=== PATIENT | male | born 1955 | race Caucasian/White ===

== ENCOUNTER 2017-12-13 21:56 | Inpatient (IN) | payer BC, OTHER ==
[~2017-12-13] VITALS: Ht 180.3 cm; Wt 96.2 kg
[~2017-12-13 21:56] MED LIST: ASPI-84 PO; ATEN50TA PO; CLOP75TA15 PO
--- NOTE | 2017-12-13 21:56 | NUR ---
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 1 NITRO AND 162 ASA GIVEN PRIOR TO ARRIVAL. PT IS HYPERTENSIVE BU OTHERWISEE VSS NO ACUTE DISTRESS AT THIS TIME. X1 VOMIT. WILL CONTINUE TO MONITOR FOR ANY CHANGES DURING THE SHIFT.
--- NOTE | 2017-12-13 21:57 | NUR ---
ER MD CASTANEDA AT BEDSIDE FOR EVAL
--- NOTE | 2017-12-13 22:11 | NUR ---
18G LEFT AC IV STARTED, BLOOD SAMPLE OBTAINED AND SENT TO LAB
[2017-12-13] MEDS ORDERED: ONDANSETRON HCL/PF 4 MG/2 ML VIAL ONE (22:13)
[2017-12-13] MEDS ORDERED: ASPIRIN 325 MG TABLET ONE (22:20)
[2017-12-13] MEDS ORDERED: NITROGLYCERIN 0.4 MG/TAB BOTTLE ONE (22:20)
[2017-12-13] MEDS ORDERED: NITROGLYCERIN 0.4 MG/TAB BOTTLE SL ONE (22:30)
[2017-12-13] MEDS ORDERED: ASPIRIN 325 MG TABLET PO ONE (22:30)
[2017-12-13] MEDS ORDERED: ONDANSETRON HCL/PF 4 MG/2 ML VIAL IV ONE (22:30)
[2017-12-13 22:32] LABS: BASOPHILS % (AUTO) 0.3 % (0.0-2.0); EOSINOPHILS % (AUTO) 0.1 % (0.0-6.0); HEMATOCRIT 51 % (39-51); HEMOGLOBIN 16.8 g/dL (13.5-17.5); LYMPHOCYTES # (AUTO) 1.2 /CMM (0.8-4.8); LYMPHOCYTES % (AUTO) 9.4 % (20.0-44.0); MEAN CORPUSCULAR HEMOGLOBIN 31 PG (26.0-33.0); MEAN CORPUSCULAR HGB CONC 33 g/dl (31.0-36.0); MEAN CORPUSCULAR VOLUME 93 fL (80-96); MONOCYTES # (AUTO) 0.4 /CMM (0.1-1.30); MONOCYTES % (AUTO) 3.3 % (2.0-12.0); NEUTROPHILS # (AUTO) 11.4 /CMM (1.8-8.9); NEUTROPHILS % (AUTO) 86.9 % (43.0-81.0); PLATELET COUNT (AUTO) 245 /CMM (150-450); RDW COEFFICIENT OF VARIATION 12.8 (11.5-15.0); RED BLOOD CELL COUNT(AUTO) 5.48 MIL/uL (4.5-6.0); WHITE BLOOD COUNT (AUTO) 13.1 K/uL (4.3-11.0)
--- NOTE | 2017-12-13 22:42 | NUR ---
PARACHUTE TAPER AT BEDSIDE
[2017-12-13 22:44] LABS: CALCIUM, SERUM 9.1 mg/dL (8.5-10.1); CARBON DIOXIDE 25 mmol/L (21-32); CHLORIDE 99 mmol/L (98-107); CREATININE 1.4 mg/dL (0.6-1.3); GLUCOSE 143 mg/dL (74-106); POTASSIUM 3.7 mmol/L (3.5-5.1); SODIUM SERUM 135 mmol/L (136-145); UREA NITROGEN, BLOOD 27 mg/dL (7-18)
--- NOTE | 2017-12-13 22:46 | NUR ---
CALLED NURSING [facility] AND REQUESTED A TELE BED FOR THIS PT.
[2017-12-13 22:49] LABS: INR 0.96 (0.87-1.13)
[2017-12-13 22:52] LABS: TROPONIN I < 0.017 ng/mL (0.00-0.056)
[2017-12-13 22:57] LABS: B-TYPE NATRIURETIC PEPTIDE 103 PG/ML (0-125)
[2017-12-13] MEDS ORDERED: ATOR20TA PO (23:20)
--- NOTE | 2017-12-13 23:35 | NUR ---
PT IS ASSIGNED TO [facility]#: [id number]
[2017-12-14] VITALS (7 sets, daily range): BP systolic 121–169; BP diastolic 64–103
[2017-12-14] MEDS ORDERED: Z GUARD REMEDY 2 OZ OINT TP PRN
[2017-12-14] MEDS ORDERED: ACETAMINOPHEN 325 MG TABLET PO PRN
[2017-12-14] MEDS ORDERED: ZOLPIDEM TARTRATE 5 MG TABLET PO PRN
[2017-12-14] MEDS ORDERED: ONDANSETRON HCL/PF 4 MG/2 ML VIAL IVP PRN
[2017-12-14] MEDS ORDERED: MORPHINE SULFATE INJ 2 MG/ML DISP.SYRIN IV PRN
--- NOTE | 2017-12-14 00:04 | NUR ---
REPORT GIVEN TO ZEFERINO
--- NOTE | 2017-12-14 00:30 | NUR ---
CUTTER GRIND TOOL TECHNICIAN NOTES PT ARRIVED ON TO THE UNIT @0028 [facility] ACCOMPANIED BY HIS . PT AMBULATED FROM GURNEY TO BED. GAIT STEADY. PT COMPLAINS OF CHEST PAIN, AND N/V FOR 3 DAYS, STATED TODAY WAS WORSE. NO COMPLAINTS OF CHEST PAIN AT THIS TIME. PT TELE MONITORED NSR. PT HAS A LEFT AC IV #18, INTACT AND PATENT. PT COMPLAINS OF HEART BURN AND UPSET STOMACH WILL FOLLOW UP WITH ADMITTING DR BOUCHRA BAHENA. ALL PT BELONGINGS ACCOUNTED FOR AND DOCUMENTED. PT ORIENTED TO THE USE OF THE CALL LIGHT. SAFETY PRECAUTIONS IN PLACE, BED IN LOWEST LOCKED POSITION, X2 SIDE RAILS UP, AND CALL LIGHT WITHIN REACH. WILL CONTINUE TO MONITOR.
--- NOTE | 2017-12-14 00:56 | NUR ---
RN NOTES PER BOUCHRA BAHENA ORDER MAALOX 30ML PO Q6H PRN, AND PROTONIX 40MG IV DAILY. WILL ADMINISTER AND CONTINUE TO MONITOR.
[2017-12-14] MEDS ORDERED: MAG HYDROX/AL HYDROX/SIMETH 30 ML UDC PO PRN (01:00)
[2017-12-14] MEDS: MAG HYDROX/AL HYDROX/SIMETH 30 ML UDC PO PRN ×2 (01:15→06:54)
[2017-12-14] MEDS: PANTOPRAZOLE 40 MG VIAL IV SCH ×2 (01:15→21:24)
[2017-12-14] MEDS: ENOXAPARIN SODIUM 40 MG/0.4 ML DISP.SYRIN SQ SCH ×2 (01:16→21:24)
[2017-12-14] MEDS: NITROGLYCERIN PACKET 1 GM PACKET TOP SCH ×4 (01:17→17:01)
--- NOTE | 2017-12-14 03:00 | NUR ---
RN NOTES PT STATED THAT HE HAD A HEADACHE. REMOVED NITRO PATCH AND ADMINISTERED TYLENOL. WILL CONTINUE TO MONITOR.
[2017-12-14 06:29] LABS: BASOPHILS % (AUTO) 0.2 % (0.0-2.0); HEMATOCRIT 46 % (39-51); HEMOGLOBIN 15.4 g/dL (13.5-17.5); LYMPHOCYTES # (AUTO) 1.6 /CMM (0.8-4.8); LYMPHOCYTES % (AUTO) 12.8 % (20.0-44.0); MEAN CORPUSCULAR HEMOGLOBIN 32 PG (26.0-33.0); MEAN CORPUSCULAR HGB CONC 34 g/dl (31.0-36.0); MEAN CORPUSCULAR VOLUME 94 fL (80-96); MONOCYTES # (AUTO) 0.6 /CMM (0.1-1.30); MONOCYTES % (AUTO) 5.1 % (2.0-12.0); NEUTROPHILS # (AUTO) 9.9 /CMM (1.8-8.9); NEUTROPHILS % (AUTO) 81.9 % (43.0-81.0); PLATELET COUNT (AUTO) 222 /CMM (150-450); RDW COEFFICIENT OF VARIATION 12.7 (11.5-15.0); RED BLOOD CELL COUNT(AUTO) 4.86 MIL/uL (4.5-6.0); WHITE BLOOD COUNT (AUTO) 12.1 K/uL (4.3-11.0)
--- NOTE | 2017-12-14 06:39 | NUR ---
RN CLOSING NOTES PT AWAKE AND RESTING IN BED. NO COMPLAINTS OF CHEST PAIN OR SOB. PT TELE MONITORED NSR RATE 65. PT HAS A LEFT AC IV #18, INTACT AND PATENT. SAFETY PRECAUTIONS IN PLACE, BED IN LOWEST LOCKED POSITION, X2 SIDE RAILS UP, AND CALL LIGHT WITHIN REACH. WILL ENDORSE TO DAY SHIFT NURSE FOR CONTINUITY OF CARE.
[2017-12-14 07:02] LABS: THYROID STIMULATING HORMONE 1.222 uIU/mL (0.358-3.74)
[2017-12-14 07:05] LABS: ALBUMIN 3.6 g/dL (3.4-5.0); BILIRUBIN,TOTAL 0.7 mg/dL (0.2-1.0); CALCIUM, SERUM 8.6 mg/dL (8.5-10.1); CREATININE 1.2 mg/dL (0.6-1.3); MAGNESIUM 2.3 mg/dL (1.8-2.4); PHOSPHORUS 4.8 mg/dL (2.5-4.9); POTASSIUM 4.2 mmol/L (3.5-5.1)
--- NOTE | 2017-12-14 07:49 | NUR ---
MS/RN Patient received Patient received from cobol application developer. A/O X4, vital signs stable. States that chest pain is currently 4/10 and much improved since las t night. Feels that the pain is more GI in nature, described as burning type pain with no radiation. Safety measures in place, call light within reach and able to demonstrate how to call for help. Will continue to monitor and ensure safety.
[2017-12-14] MEDS: CLOPIDOGREL BISULFATE 75 MG TABLET PO SCH (08:16)
[2017-12-14] MEDS: ASPIRIN 325 MG TABLET PO SCH (08:16)
[2017-12-14] MEDS: ATENOLOL 50 MG TABLET PO SCH (08:17)
--- NOTE | 2017-12-14 08:57 | NUR ---
MS/RN Medications Morning medications administered as ordered.
--- NOTE | 2017-12-14 10:52 | NUR ---
MS/RN S/B Dr Ny Seen by Dr Ny - labs ordered for tomorrow, awaiting cardiology consult.
[2017-12-14] MEDS ORDERED: hydrALAZINE HCL 25 MG TABLET PO PRN (11:00)
[2017-12-14] MEDS ORDERED: BISACODYL (5 MG) 5 MG TABLET.DR PO PRN (11:00)
[2017-12-14] MEDS: DOCUSATE SODIUM 100 MG CAPSULE PO SCH ×2 (11:22→17:00)
--- NOTE | 2017-12-14 11:49 | NUR ---
MS/RN Constipation Complaining of no BM for past three or four days, Dr Ny informed and new orders given. Colace and senna administered, will monitor effectiveness
--- NOTE | 2017-12-14 12:30 | NUR ---
MS/director hardware reading Heart rate reading NSR.
--- NOTE | 2017-12-14 18:07 | NUR ---
MS/RN End note Patient stating that pain has now gone, pain scale 0/10. Stating that more comfortable since bowel movement. Has remained NSR on monitor, blood pressure controlled with regular scheduled medications. All needs attended, will endorse to welder 2nd shift.
--- NOTE | 2017-12-14 19:00 | NUR ---
RN OPENING NOTES PT AWAKE AND RESTING IN BED. PT ALERT AND ORIENTED. PT TELE MONITORED AT SINUS RHYTHM. PT HAS A LEFT AC #18 INTACT AND PATENT. NO COMPLAINTS OF PAIN, SOB OR DISTRESS AT THIS TIME. SAFETY PRECAUTIONS IN PLACE, BED IN LOWEST LOCKED POSITION, X2 SIDE RAILS UP AND CALL LIGHT WITHIN REACH. WILL CONTINUE TO MONITOR.
--- NOTE | 2017-12-14 21:00 | NUR ---
RN NOTES PT HAS LOOSE STOOLS REFUSED MIRALAX.
[2017-12-14] MEDS ORDERED: ATORVASTATIN 10 MG TABLET PO SCH (22:00)
[2017-12-14] MEDS ORDERED: POLYETHYLENE GLYCOL 3350 17 GM POWD.PACK PO SCH (22:00)
[2017-12-15] VITALS: BP 134/80
[2017-12-15] MEDS: NITROGLYCERIN PACKET 1 GM PACKET TOP SCH ×3 (00:38→12:00)
[2017-12-15 04:00] VITALS: BP 112/62
[2017-12-15 06:35] LABS: BASOPHILS % (AUTO) 0.4 % (0.0-2.0); HEMATOCRIT 46 % (39-51); HEMOGLOBIN 15.3 g/dL (13.5-17.5); LYMPHOCYTES # (AUTO) 2.9 /CMM (0.8-4.8); MEAN CORPUSCULAR HEMOGLOBIN 31 PG (26.0-33.0); MEAN CORPUSCULAR HGB CONC 33 g/dl (31.0-36.0); MEAN CORPUSCULAR VOLUME 94 fL (80-96); MONOCYTES # (AUTO) 1.1 /CMM (0.1-1.30); MONOCYTES % (AUTO) 9.6 % (2.0-12.0); PLATELET COUNT (AUTO) 200 /CMM (150-450); RDW COEFFICIENT OF VARIATION 12.8 (11.5-15.0); RED BLOOD CELL COUNT(AUTO) 4.92 MIL/uL (4.5-6.0); WHITE BLOOD COUNT (AUTO) 11.1 K/uL (4.3-11.0)
[2017-12-15 07:07] LABS: THYROID STIMULATING HORMONE 1.601 uIU/mL (0.358-3.74)
[2017-12-15 07:14] LABS: CALCIUM, SERUM 8.5 mg/dL (8.5-10.1); CREATININE 1.4 mg/dL (0.6-1.3); MAGNESIUM 2.4 mg/dL (1.8-2.4); POTASSIUM 4.6 mmol/L (3.5-5.1)
--- NOTE | 2017-12-15 07:37 | NUR ---
ENVIRONMENTAL AID OPENING NOTE RECEIVED PT IN BED FROM CORE DROPPER RN, [id number], DENIES N/V, SOB, AND PAIN. SR ON TAPERING MACHINE OPERATOR. ALL NEEDS ATTENDED, SAFETY MEASURES IN PLACE, CALL LIGHT WITHIN REACH. WILL CONTINUE TO MONITOR AND INSURE SAFETY.
[2017-12-15 08:00] VITALS: BP 122/83
[2017-12-15] MEDS: ATENOLOL 50 MG TABLET PO SCH (08:10)
[2017-12-15] MEDS: CLOPIDOGREL BISULFATE 75 MG TABLET PO SCH (08:10)
[2017-12-15] MEDS: ASPIRIN 325 MG TABLET PO SCH (08:11)
[2017-12-15] MEDS: DOCUSATE SODIUM 100 MG CAPSULE PO SCH (08:12)
--- NOTE | 2017-12-15 09:41 | NUR ---
FISH RECEIVER LABS REVIEWED MORNING LABS REVIEWED, ALL VALUES WITHIN EXPECTED RANGE.
[2017-12-15 12:00] VITALS: BP 131/84
--- NOTE | 2017-12-15 14:00 | NUR ---
MS RN PT SEEN BY DR. CONNER PT SEEN AND EXAMINED BY DR. CONNER, CLEARED FOR D/C AND TO FOLLOW UP WITH OWN FABRIC SEPARATOR OPERATOR IN ONE WEEK.
[2017-12-15 16:00] VITALS: BP 134/67
--- NOTE | 2017-12-15 16:11 | NUR ---
MS TRIMMING MACHINE SET UP OPERATOR PLAN PT SEEN AND EXAMINED BY [place]. PT CLEARED FOR D/C TO HOME TODAY. PRESCRIPTION WROTE FOR ATENOLOL, PLAVIX, AND ATORVASTATIN. EDUCATED PT TO WHAT EACH DRUG WAS FOR AND POSSIBLE SIDE EFFECTS. PT STATED UNDERSTANDING. EXIT CARE COMPLETED AND SIGNED BY PT. PROVIDED WITH COPY OF MEDICAL RECORD AND EXIT CARE. ALL PERSONAL BELONGING ACCOUNTED FOR ON BELONGINGS LIST. NAME BAND AND TELE MONITOR REMOVED, HEP LOCK REMOVED, CATHETER INTACT AND PRESSURE DRESSING APPLIED. TIME ALLOWED FOR ALL QUESTIONS AND CONERNS TO BE ADDRESSED. AWAITING TO PROVIDE TRANSPORT HOME.
--- NOTE | 2017-12-15 16:49 | NUR ---
MS RADIATION THERAPY TECHNICIAN PT ESCORTED TO MAIN LOBBY WITH AND TITLE EXAMINER.
[2017-12-16] MEDS ORDERED: ASPIRIN 81 MG TAB.CHEW PO SCH (09:00)
== END 2017-12-15 16:31 | disposition home or self-care (01) | DRG 205 ==
LOC: ER 22:01 → TELE 23:36
PROVIDERS: ADMIT Nurse Practitioner Acute Care; ATTEND Nurse Practitioner Acute Care
DX: M94.0 Chondrocostal junction syndrome [Tietze] (principal); N17.0 Acute kidney failure with tubular necrosis; E87.1 Hypo-osmolality and hyponatremia; Z98.61 Coronary angioplasty status; I16.0 Hypertensive urgency; K27.9 Peptic ulcer, site unspecified, unspecified as acute or chronic, without hemorrhage or perforation; R07.9 Chest pain, unspecified; I25.2 Old myocardial infarction; I10 Essential (primary) hypertension; K21.9 Gastro-esophageal reflux disease without esophagitis; I25.10 Atherosclerotic heart disease of native coronary artery without angina pectoris; E78.5 Hyperlipidemia, unspecified; Z87.19 Personal history of other diseases of the digestive system; Z88.0 Allergy status to penicillin; F41.9 Anxiety disorder, unspecified; D72.829 Elevated white blood cell count, unspecified; Z68.29 Body mass index [BMI] 29.0-29.9, adult; E66.9 Obesity, unspecified; Z82.49 Family history of ischemic heart disease and other diseases of the circulatory system
CPT/HCPCS: 36415; 71045-TC; 80048-TC; 80053-TC; 80061-TC; 83540-TC; 83735-TC; 83880; 84100-TC; 84443-TC; 84484-TC; 85025-TC; 85730-TC; 87081-TC; 93307-TC; A4606; C9113; J1650; J2405; Z7610